=== PATIENT | female | born 1980 | race Caucasian/White ===

== ENCOUNTER 2017-12-19 16:55 | Emergency (ER) | payer BC ==
[2017-12-19] MEDS ORDERED: Amoxicillin PO (*) 500 MG CAP PO ONE (19:31)
[2017-12-19] MEDS ORDERED: Ciprofloxacin TAB* 500 MG PO ONE (19:36)
[2017-12-19 19:54] VITALS: BP 106/62
--- NOTE | 2017-12-19 19:58 | UC ---
Ear Complaint HPI - HPI Summary HPI Summary: ONSET OF LEFT EAR PAIN, DRAINAGE AND DECREASED HEARING TODAY. HAS HAD URI SX FOR 8 DAYS. - History of Current Complaint Chief Complaint: UCEar Stated Complaint: EAR PAIN,COUGH Time Seen by Provider: 12/19/17 19:12 Hx Obtained From: Patient Hx Last Menstrual Period: 1 week Onset/Duration: Sudden Onset, Lasting Hours, Still Present Severity Initially: Moderate Severity Currently: Moderate Pain Intensity: 6 Pain Scale Used: 0-10 Numeric Aggravating Factors: Nothing Alleviating Factors: Nothing Associated Signs/Symptoms: Positive: Discharge, Hearing Loss, URI Symptoms - Allergies/Home Medications Allergies/Adverse Reactions: Allergies Allergy/AdvReac Type Severity Reaction Status Date / Time No Known Allergies Allergy Verified 12/19/17 18:11 PMH/Surg Hx/FS Hx/Imm Hx - Additional Past Medical History Additional PMH: RA - Surgical History Surgical History: None - Family History Known Family History: Negative: Hypertension - Social History Alcohol Use: Occasionally Substance Use Type: None Smoking Status (MU): Former Smoker Review of Systems Constitutional: Fatigue ENT: Ear Ache Respiratory: Cough Cardiovascular: Negative Gastrointestinal: Negative All Other Systems Reviewed And Are Negative: Yes Physical Exam Triage Information Reviewed: Yes Appearance: Well-Appearing, No Pain Distress, Well-Nourished Vital Signs: Initial Vital Signs Temp 98.5 F 12/19/17 18:07 Pulse 77 12/19/17 18:07 Resp 16 12/19/17 18:07 BP 135/67 12/19/17 18:07 Pulse Ox 99 12/19/17 18:07 Vital Signs Reviewed: Yes Eyes: Positive: Conjunctiva Clear ENT: Positive: Hearing grossly normal, Pharynx normal, Other - RIGHT TM NORMAL. LEFT EAC WITH SEROUS FLUID. TM UNABLE TO BE ADEQUATELY VISUALIZED DUE TO FLUID BUBBLES Neck: Positive: Supple, Nontender, No Lymphadenopathy Respiratory Exam: Normal Cardiovascular Exam: Normal Abdomen Description: Positive: Soft Musculoskeletal: Positive: No Edema Neurological: Positive: Alert Psychological: Positive: Age Appropriate Behavior Skin: Negative: rashes Ear Complaint Course/Dx - Differential Dx/Diagnosis Provider Diagnoses: LEFT AOM, RUPTURED EAR DRUM Discharge - Discharge Plan Condition: Stable Disposition: HOME Prescriptions: Ciprofloxacin HCl (Otic) [Ciprofloxacin 0.2% EAR DROPS] 5 drop LEFT EAR BID #1 bottle Ciprofloxacin TAB* [Cipro 500 MG TAB*] 500 mg PO BID #13 tab Patient Education Materials: Ruptured Eardrum (ED), Ear Infection (ED) Forms: *Work Release Referrals: No Primary Care Phys,NOPCP [Primary Care Provider] - Additional Instructions: DUE TO THE AMOUNT OF FLUID IN YOUR EAR CANAL I WAS UNABLE TO VISUALIZE YOUR EAR DRUM BUT IT IS LIKELY RUPTURED. TAKE THE ORAL AND TOPICAL ANTIBIOTICS AND FOLLOW -UP WITH YOUR PCP AT [facility] OR WITH ENT IN A WEEK OR SO FOR RE-EVALUATION OF YOUR EAR DRUM. [facility] [place] [address] [facility] [phone]
== END 2017-12-19 20:06 | disposition home or self-care (01) ==
LOC: UCEAST 16:55
DX: H66.92 Otitis media, unspecified, left ear (principal); H72.92 Unspecified perforation of tympanic membrane, left ear
CPT/HCPCS: 99202; A9270-GY; G0463